=== PATIENT | female | born 1960 | race Caucasian/White ===

== ENCOUNTER 2017-03-03 16:59 | Emergency (ER) | payer OTHER ==
[~2017-03-03] VITALS: Ht 165.1 cm; Wt 112.3 kg
[~2017-03-03 16:59] MED LIST: ARIP10TA14 PO; HYDR25TA4 PO; LEVO50TA6 PO; MELO-253 PO; SERT100T PO
[2017-03-03 17:26] VITALS: BP 140/81; PULSE 109; RESP 18; O2SAT 96
[2017-03-03 18:26] LABS: BASOPHILS % (AUTO) 0.4 % (0-3)
[2017-03-03 18:29] LABS: MONOCYTES % (AUTO) 8.6 % (4-12); Mean Corpuscular Hemoglobin 27.9 pg (27.0-35.0); Mean Corpuscular Volume 85.1 fL (81-100); NEUTROPHILS % (AUTO) 55.8 % (40-74); Platelet Count 239 bil/L (150-400)
[2017-03-03 18:55] VITALS: BP 139/77; PULSE 76; RESP 22; O2SAT 98
[2017-03-03 18:57] LABS: TROPONIN T < 0.010 ug/L (0.0-0.011)
--- NOTE | 2017-03-03 19:09 | ED.REPORT ---
HPI-General Illness Date of Service Mar 03, 2017 ED Provider: Pasquale Doherty DO Bonilla is a 56-year-old female with a history of hypertension since to the ED with concerns of high blood pressure and headaches. Over the past 2 months patient noted that every time she exercised or felt stressed, she would experience left-sided sharp pain which was nonradiating and better at rest. Her headaches are described as a bandlike headache radiating up from her neck. . She denies any shortness of breath or changes in her vision. Symptoms mostly occur at night or after working out. Patient checks her blood pressure 4 times a day and notes that they are elevated after she works out running in the 180s systolic. Patient had a nuclear stress test and symptoms first started and noted that her test was normal without signs of coronary artery disease. She did have a significant spike in her blood pressure after the stress test. Her primary care physician put her on an RC inhibitor receptor georgi. She has been doing well with this medication. Nursing Notes Stated Complaint: HIGH B.P. Chief Complaint: General Complaint Nursing Notes Reviewed: Yes Allergies: Coded Allergies: metoclopramide (Verified Allergy, Severe, Rash, respirtory issues, 12/10/14) morphine (Verified Allergy, Severe, Nausea,Vomiting, 12/10/14) hydrocodone (Verified Allergy, Unknown, Nausea,Vomiting, 12/10/14) Scheduled Aripiprazole (Abilify) 10 Mg Tablet 10 MG PO DAILY Hydrochlorothiazide (Hydrochlorothiazide) 25 Mg Tablet 25 MG PO DAILY Levothyroxine (Levothyroxine) 50 Mcg Tablet 50 MCG PO DAILY Meloxicam (Meloxicam) 15 Mg Tablet 15 MG PO DAILY Sertraline HCl (Zoloft) 100 Mg Tablet 100 MG PO DAILY General Time Seen by MD: 18:11 Chief Complaint Headache High blood pressure with headaches. Hx Obtained From: Patient Arrived By: Walk-in Sudden in Onset?: No Symptom Duration: More than a week... (2 months) Location: : Head Quality: Pressure Radiation: : Does not radiate Severity: Current: No pain currently Associated with: Reports: Headache, Denies: Abdominal pain, Chest pain, Diaphoresis, Difficulty swallowing, Shortness of breath, Vision change, Vomiting, Weakness Pertinent Negative: Pt denies other symptoms HEART Score HEART for MACE: Mod index of susp (1), Normal ECG (0), Age 45 - 65 (1), < or = to NL troponin (0) HEART for MACE Score: 0-3 (low risk 0.9%-1.7%) Past Medical History Past Medical History Vertigo Hypothyroidism Depression Arthritis Hypoglycemia Past Surgical History Partial hysterectomy Hiatal hernia repair Laminectomy Reports: Appendectomy Smoking History Never Smoker Ambulatory Status Independent Review of Systems Full Review of Systems Constitutional: Denies: Chills, Fever Eyes: Denies: Blurred bilateral, Diplopia Respiratory: Denies: Dyspnea on exertion, Hemoptysis Cardiovascular: Denies: Chest pain, Syncope GI: Reports: Diarrhea, Nausea, Denies: Abdominal pain Skin: Denies Diaphoresis Neurologic: Denies: Dizziness Psychiatric: Reports: Stress Complete sys rev & neg: except as marked. Physical Exam Vital Signs Vital Signs Date Time Temp Pulse Resp B/P Pulse Ox O2 Delivery O2 Flow Rate FiO2 03/03/17 20:37 75 17 134/67 98 Room Air 03/03/17 18:55 76 22 139/77 98 Room Air 03/03/17 17:26 37.1 109 18 140/81 96 Room Air Initial VS: Reviewed General/Constitutional: Well-developed, Well-nourished Head / Eyes: Atraumatic, Normocephalic, PERRL ENT: Mucous membranes moist, Conjunctiva normal, No scleral icterus Neck: Supple, Non-tender, Full range of motion Respiratory: Breath sounds normal, Clear to auscultation, No respiratory distress Abdomen / GI: Soft, Non-tender, No guarding, No rebound, No distention Back: No CVA tenderness Extremities: Vascular intact, Neuro intact, No tenderness Skin: Warm, Dry, No cyanosis Neurologic: Alert, Oriented, Nonfocal Psychiatric: Mood/affect normal, Behavior normal, Normal thought content Cardiovascular: Heart rate NL, Regular rhythm, Heart sounds NL, Cap refill not delayed, Peripheral circulation NL Lower Ext Edema: Positive: Ankle, Left 1+, Pitting, Right 1+ Interpretation & Diagnostics Lab Results Interpretation Result Diagram: 03/03/172 03/03/17 1822 Test 03/03/17 18:22 White Blood Count 10.1th/mm3 (3.8-10.1) Red Blood Count 4.23mil/mm3 (3.90-5.20) Hemoglobin 11.8g/dL (12.0-15.6) Hematocrit 36.0% (35.0-46.0) Mean Corpuscular Volume 85.1fL (81-100) Mean Corpuscular Hemoglobin 27.9pg (27.0-35.0) Mean Corpuscular Hemoglobin Concent 32.8% (32.0-37.0) Red Cell Distribution Width 13.9% (12.3-15.4) Platelet Count 239bil/L (150-400) Neutrophils (%) (Auto) 55.8% (40-74) Lymphocytes (%) (Auto) 33.0% (14-46) Monocytes (%) (Auto) 8.6% (4-12) Eosinophils (%) (Auto) 2.0% (0-5) Basophils (%) (Auto) 0.4% (0-3) Sodium Level 139mEq/L (134-144) Potassium Level 4.0mEq/L (3.5-5.2) Chloride Level 100mEq/L (97-108) Carbon Dioxide Level 22mmol/L (18-29) Blood Urea Nitrogen 18mg/dL (6-24) Creatinine 0.51mg/dL (0.57-1.00) Estimat Glomerular Filtration Rate 179mL/min (>59) Glucose Level 124mg/dL (60-99) Calcium Level 8.9mg/dL (8.5-10.1) Magnesium Level 2.0mg/dL (1.6-2.6) Total Bilirubin 0.7mg/dL (0.0-1.2) Aspartate Amino Transf (AST/SGOT) 43U/L (0-50) Alanine Aminotransferase (ALT/SGPT) 62U/L (0-32) Alkaline Phosphatase 102U/L (25-150) Troponin T < 0.010ug/L (0.0-0.011) Total Protein 7.3g/dL (6.4-8.4) Albumin 4.1g/dL (3.4-5.0) Hold Wilkes Top Tube Received (Received) ECG Interpretation ECG Interpretation: Sinus rhythm at a rate of 79 bpm Left ventricular hypertrophy no signs of ischemia Time: 18:03 Interpreted by: ED physician Re-Eval/Medical Decision Med Decision/Clinical Course Irene is a 56-year-old female with a history of hypertension. her heart score identified her as low risk - h. With a recent nuclear stress test showing no signs of CAD is reassuring. Stress test from 11/14/16 IMPRESSION: 1. Normal myocardial perfusion images without evidence of ischemia or infarct. 2. Normal left ventricular ejection fraction without segmental wall motion abnormalities. 3. No diagnostic EKG changes of ischemia following exercise stress. 4. Patient reported chest pain and dyspnea following exercise stress. Today we will ordered an EKG and labs to ensure that her symptoms are due to a cardiovascular event. EKG showed sinus rhythm with no signs of ischemia. Troponins <0.01. Discharge & Departure Shift Change Sign-Out Response to Therapy: Improved Primary Impression: Hypertension Hypertension type: essential hypertension Qualified Code: I10 - Essential ( primary) hypertension Additional Impression: Tension headache Disposition: Home Discharge Condition All VS Reviewed: Yes Condition: Stable Patient Instructions: Hypertension (ED) Additional Instructions: Today we worked up your Blood pressure with an EKG and lab work which showed that your symptoms are not due to your heart. It is normal to have an elevated blood pressure after exercise. Continue to exercise and maintain a healthy diet for weight loss. Stay hydrated. Continue to take her blood pressure medication losartan. Referrals: Flor Harrell MD (PCP) Attending Statement I personally took a history and performed a physical examination. I had a good conversation with Tamanna and her significant other. Her issue is that throughout the day she will spikes in her blood pressure. This is usually when she is most stressed out. She will feel anxiety related to the stressors in her life. She will feel her heart rate picked up and this will lead to a headache. She then checks her blood pressure next elevated. She is on an appropriate antihypertensive. Her blood pressures been ideal in the emergency department. She has had a recently normal stress test. She did have a hypertensive response to the stress test. Her troponin is normal. Her laboratory work is normal. Her exam is negative for signs of malignant hypertension or end organ disease. I think she needs to take it easy. She needs to continue to exercise. She is went to check her blood pressure as recommended by her primary care physician and she will stay on her hypertensive medications as is. At this point tenderness or evidence of myocardial infarction or acute emergent condition. I think she needs to continue exactly as she has not try to relax a little bit. Consider anxiolytics to her primary care as well. She agrees with this assessment and plan. Pasquale Doherty DO Mar 03, 2017 19:08 Demetra Roberson DO Mar 03, 2017 19:36
[2017-03-03 20:37] VITALS: BP 134/67; PULSE 75; RESP 17; O2SAT 75; O2SAT 98
== END 2017-03-03 20:38 | disposition home or self-care (01) ==
LOC: SED 16:59
DX: I10 Essential (primary) hypertension (principal); G44.209 Tension-type headache, unspecified, not intractable; F43.9 Reaction to severe stress, unspecified; F32.9 Major depressive disorder, single episode, unspecified; E03.9 Hypothyroidism, unspecified; Z90.710 Acquired absence of both cervix and uterus; Z90.89 Acquired absence of other organs; Z98.890 Other specified postprocedural states; Z88.5 Allergy status to narcotic agent; Z88.8 Allergy status to other drugs, medicaments and biological substances